=== PATIENT | male | born 1950 | race Caucasian/White ===

== ENCOUNTER 2018-09-23 04:14 | Emergency (ER) | payer SELFPAY ==
[2018-09-23 04:15] VITALS: BP 159/78; PULSE 108; RESP 13; TEMP 36.6; O2SAT 98; BMI 28.6
--- NOTE | 2018-09-23 04:18 | ED.RN ---
CALLED FOR EKG PER RN REQUEST, NO OLD EKGS IN MUSE
--- NOTE | 2018-09-23 04:22 | EKG12_ITS ---
Test Reason : PTSD/PANIC ATTACKS Blood Pressure : / mmHG Vent. Rate : 073 BPM Atrial Rate : 073 BPM P-R Int : 138 ms QRS Dur : 084 ms QT Int : 396 ms P-R-T Axes : 063 -24 015 degrees QTc Int : 436 ms Normal sinus rhythm with sinus arrhythmia Nonspecific ST abnormality Abnormal ECG Confirmed by ERIC CHU, CORIE ([id number]), supervising editor news reel ANGY MCNAIR ([id number]) on 09/24/2018 3:49:10 PM Referred By: DR MYERS Confirmed By:CORIE REYES MD
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
[2018-09-23 05:32] VITALS: BP 138/60; PULSE 74; RESP 10; O2SAT 96
== END 2018-09-23 05:34 | disposition home or self-care (01) ==
PROVIDERS: Emergency Provider Emergency Medicine
DX: R00.2 Palpitations (principal); Z79.82 Long term (current) use of aspirin; Z79.899 Other long term (current) drug therapy
CPT/HCPCS: 93005; 99283